=== PATIENT | female | born 1965 | race Caucasian/White ===

== ENCOUNTER 2017-11-02 12:40 | Outpatient (CLI) | payer OTHER ==
--- NOTE | 2017-11-02 15:24 | RAD ---
LUMBAR SPINE 3 VIEWS: HISTORY: A 52-year-old female with a history of lumbar radicular pain, chronic lob back pain for years. FINDINGS: Flexion, extension, and neutral standing lateral views are performed. Mild diffuse joint space loss. No evidence for a fracture of dislocation. No significant malalignme nt. No abnormal translation between flexion and extension. IMPRESSION: Mild spondylosis. No abnormal translation. POS: [facility]
--- NOTE | 2017-11-02 16:31 | MRI ---
MRI LUMBAR SPINE WITHOUT CONTRAST: 11/02/17 HISTORY: 52-year-old female with chronic low back pain. FINDINGS: Correlation is made with the radiographs of same date. The vertebral body heights and marrow signal are maintained. There is a left paracentral focal disc b ulge at L1-2 level with impingement of the anterior thecal sac. No significant neural foraminal steno sis or central canal stenosis seen at this level. A left foraminal disc protrusion is noted at L3-4 level causing neural foraminal stenosis and probabl e impingement of the exiting nerve root. No significant central canal stenosis or neural foraminal stenosis at any other level identified. The paraspinal musculature is normal. The conus medullaris ends at L1 level. There is a 7 mm probable cystic lesion in the left renal cortex. IMPRESSION: 1. Small left paracentral focal disc bulge at L1-2 level. 2. Left neural foraminal stenosis and probable impingement of the exiting nerve root due to foca l foraminal disc protrusion at L3-4 level. 3. Probable cyst in the left kidney. A renal ultrasound is recommended. POS: [facility]
== END 2017-11-02 12:41 | disposition home or self-care (01) ==
LOC: SCSMRI 12:40
PROVIDERS: ATTEND Nurse Practitioner Family
DX: M47.26 Other spondylosis with radiculopathy, lumbar region (principal); M51.16 Intervertebral disc disorders with radiculopathy, lumbar region; M99.83 Other biomechanical lesions of lumbar region
CPT/HCPCS: 72100; 72148

== ENCOUNTER 2017-11-14 11:12 | Outpatient (CLI) | payer OTHER ==
--- NOTE | 2017-11-14 13:50 | ULT ---
RENAL ULTRASOUND: History: Possible left renal cyst. Comparison: None. Correlation: Lumbar spine MRI 11-02-17. Technique: Utilizing a multihertz transducer, sonographic imaging of the left and right kidneys perfo rmed in the longitudinal and transverse plane. FINDINGS: Limited evaluation of both kidneys due to body habitus. Right kidney measures 9.5 x 4.1 x 4.4 cm. Left kidney measures 9.1 x 4.5 x 4.9 cm. Bilaterally, no hy dronephrosis. Nonspecific echogenic foci are noted in both pelvises. Decompressed urinary bladder, limited evaluation. IMPRESSION: No obvious sonographic evidence of a left renal cyst. Correlation made with recent MRI noted a 6 mm T 2 hyperintense lesion. This lesion cannot be adequately assessed by sonography given the size and bod y habitus limitations. Consider better interrogation with CT. POS: [facility]
== END 2017-11-14 11:13 | disposition home or self-care (01) ==
LOC: SCSULT 11:12
PROVIDERS: ATTEND Nurse Practitioner Family
DX: N28.1 Cyst of kidney, acquired (principal); N28.9 Disorder of kidney and ureter, unspecified
CPT/HCPCS: 76770

== ENCOUNTER 2018-02-08 15:04 | Outpatient (CLI) | payer OTHER ==
--- NOTE | 2018-02-08 16:51 | CT ---
CT ABDOMEN WITH AND WITHOUT CONTRAST: 02/08/18 Multiple axial tomograms obtained through the abdomen without IV enhancement. Postcontrast images were obtained in portal venous phase and delayed venous phase following urinary p rotocol. INDICATIONS: Followup of T2 hyperintense lesions seen in left kidney on MRI. Correlation made to MRI lumbar spine 11/02/17 which described a 5 mm lesion left kidney. FINDINGS: On the precontrast exam there is a 8 to 10 mm calculus in the mid to lower pole collecting structures of the left kidney. There are numerous other smaller nonobstructing calculi in the mid and lower angel e collecting structures of the left kidney. No right renal calculus identified. No hydronephrosis see n. On the postcontrast images there is a low density lesion in the medial left renal cortex correspondin g to the lesion seen on MRI. This lesion measures approximately [address] It is not well seen on th e precontrast images. It does represent a complex lesion on postcontrast images with evidence of inte rnal septation enhancement. This may represent a complex cyst. Followup is recommended to ensure stab ility. There is a tiny low density subcentimeter lesion peripheral posterior cortex of the right kidney bridgett uring approximately 4 to 5 mm. The low attenuation of this lesion suggests fat content possibly repre senting a tiny angiomyolipoma. Kidneys show equal and symmetric function. Delayed images show contrast secretion into collecting str uctures. The visualized bowel loops unremarkable. The liver, spleen and pancreas unremarkable. Aorta normal ca liber. IMPRESSION: 1. Low density lesion in the medial left renal cortex measuring 9 mm corresponds to the lesion s een on prior MRI. There is evidence of internal septated enhancement on postcontrast images making th is a complex cystic lesion. Suggest followup CT abdomen with contrast in six months to re-evaluate th is lesion. 2. 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 3. There are several nonobstructing calculi in the upper collecting structures of the left kidne y as described. POS: [facility]
== END 2018-02-08 15:05 | disposition home or self-care (01) ==
LOC: SCSCT 15:04
PROVIDERS: ATTEND Family Medicine
DX: N28.1 Cyst of kidney, acquired (principal); N28.9 Disorder of kidney and ureter, unspecified; N20.0 Calculus of kidney; D17.71 Benign lipomatous neoplasm of kidney
CPT/HCPCS: 74170

== ENCOUNTER 2018-02-19 14:11 | Outpatient (CLI) | payer OTHER ==
--- NOTE | 2018-02-19 15:11 | MMO ---
[facility] SCREENING MAMMOGRAM: Comparison: 11-05-13 History: 53-year-old female for routine screening mammography. Technique: CC and MLO views of both breasts are submitted for interpretation. This study is interpret ed with the assistance of computer aided detection. FINDINGS: Breasts are composed of scattered fibroglandular tissue. Bilaterally, no suspicious dominant mass, ar chitectural distortion, or calcification. IMPRESSION: BIRADS category 2 - benign findings. RECOMMENDATION: Annual mammogram. POS: [facility]
== END 2018-02-19 14:12 | disposition home or self-care (01) ==
LOC: SCSMAMMO 14:11
PROVIDERS: ATTEND Family Medicine
DX: Z12.31 Encounter for screening mammogram for malignant neoplasm of breast (principal)
CPT/HCPCS: 77067